=== PATIENT | male | born 1955 | race Caucasian/White ===

== ENCOUNTER 2017-01-09 13:33 | Emergency (ER) | payer BC, OTHER ==
[~2017-01-09] VITALS: Ht 185.4 cm; Wt 96.6 kg
[2017-01-09 13:40] VITALS: TEMP 36.9; Ht 185.4 cm; Wt 96.6 kg
[2017-01-09] MEDS ORDERED: ALBUTEROL HFA 8 GM INHALER INH STA (13:50)
--- NOTE | 2017-01-09 14:40 | DIAGNOSTIC IMAGING REPORT ---
CHEST 2 VIEWS ROUTINE HISTORY: cough/wheezing/chills x 3 wks COMPARISON: Chest 09/02/2014. FINDINGS: The lungs are clear. Cardiac silhouette is normal in size. No pleural effusions. No pneumothorax. IMPRESSION: No acute process. Electronically signed by: Kody Del Rosario M.D. 01/09/2017 2:38 PM Dictated Date/Time: 01/09/2017 2:29 PM
[2017-01-09] MEDS ORDERED: AMOX875T PO (14:54)
--- NOTE | 2017-01-09 14:57 | EMERGENCY ROOM VISIT NOTE ---
History First contact with patient: 13:44 Chief Complaint: COUGH Stated Complaint: COUGH, HEAD CONGESTIONS Nursing Triage Summary: triage note: pt reports for the past 3 weeks he has had head congestion, cough with white sputm, bilat ear "popping." pt reports this is the first time he is seeking medical attention for this illness. pt reports pt has a hx of sarcodosis. History of Present Illness The patient is a 61 year old male who presents to the Emergency Room with complaints of progressively worsening head congestion, productive cough avoid sputum, and bilateral ear pain. The patient reports that he developed a cold 3 weeks ago. He reports that the cough has been intermittent. He has had recent weakness and chills. He has not checked his temperature at home. The patient does have a history of sarcoidosis, but has never had any respiratory problems with his disease. He reports significant pressure in the cheeks and forehead. He denies any history of chronic sinusitis. He currently denies any sore throat , but does have mild postnasal drip. He rates his overall discomfort a 5 out of 10. Review of Systems 10 system review was performed and was negative except for pertinent positives and negatives as indicated in history of present illness Past Medical/Surgical History Medical Problems: (1) Sarcoidosis Surgical Problems: (1) History of appendectomy (2) History of hernia repair Family History Cancer Heart disease Social History Smoking Status: Never Smoker Alcohol Use: occasionally Drug Use: none Marital Status: Housing Status: lives with family Occupation Status: employed Current/Historical Medications Scheduled Amoxicillin & Pot Clavulanate (Augmentin 875-125 mg), 1 TAB PO BID Allergies Coded Allergies: Codeine (Verified Allergy, Severe, ANAPHYLAXIS, 01/09/17) "GETS RED AND NECK SWELLS UP" Physical Exam Vital Signs Date Time Temp Pulse Resp B/P (MAP) Pulse Ox O2 Delivery O2 Flow Rate FiO2 01/09/17 13:40 36.9 88 18 111/82 94 Room Air Physical Exam CONSTITUTIONAL: Healthy and well nourished. Alert and oriented X 3 with positive affect. She has a mild nonproductive cough. HEENT: Normocephalic, atraumatic. Pupils equal, round and reactive. Examination of the ears does show bilateral TM bulging without air-fluid levels or purulent effusion. TM is not erythematous. Nares are clear. The patient has tenderness to percussion of the frontal and maxillary sinuses. OROPHARYNX: Minimal posterior pharyngeal erythema without tonsillar hypertrophy , exudates or postnasal drip. NECK: Full active range of motion without discomfort. No carotid bruits or JVD. LYMPHATICS: No cervical chain adenopathy. RESPIRATORY: Patient has mild end expiratory wheezing in all nguyen. No crackles, rhonchi or stridor. CARDIOVASCULAR: Regular rate and rhythm with no murmurs, rubs or gallops. INTEGUMENTARY: No rash or other significant dermatologic conditions noted. NEUROLOGIC: No focal neurologic deficits noted. Medical Decision & Procedures ER Provider Diagnostic Interpretation: My interpretation of a two-view chest x-ray does not show any consolidations, pneumothorax or cardiomegaly. Radiologist report is as follows: CHEST 2 VIEWS ROUTINE HISTORY: cough/wheezing/chills x 3 wks COMPARISON: Chest 09/02/2014. FINDINGS: The lungs are clear. Cardiac silhouette is normal in size. No pleural effusions. No pneumothorax. IMPRESSION: No acute process. Medications Administered Medications (Trade) Dose Ordered Sig/Lindsey Route Start Time Stop Time Status Last Admin Dose Admin Albuterol (Ventolin Hfa Inhaler) 2 puffs ONE STAT INH 01/09/17 13:50 01/09/17 13:52 DC 01/09/17 13:50 2 PUFFS ED Course Patient history and physical exam were performed. Nurse's notes were reviewed. Vital signs were reviewed and were normal. O2 saturation was 97% on my evaluation. The patient is normotensive and not tachycardic. He is also afebrile. A two-view chest x-ray was normal. The patient was administered 2 puffs of an albuterol metered-dose inhaler with an AeroChamber. This completely resolved the patient's cough, and reported that his lungs "felt better". Re-auscultation did not show any expiratory wheezing. The patient will be prescribed Augmentin 875 mg twice a day 10 days. He was encouraged to continue administering albuterol 2 puffs every 4 hours as needed for cough. Ibuprofen and Tylenol as needed for pain. He may also use an additional OTC medications such as Sudafed, Mucinex and Robitussin as needed for additional relief. He was encouraged to follow-up with his PCP if symptoms are not significantly improving within the next 3-5 days. The patient was happy with plan of care, and voiced understanding of all discharge instructions. Medical Decision Impression Primary Impression: Acute sinusitis Additional Impressions: Acute bronchitis History of sarcoidosis Departure Information Prescriptions Amoxicillin & Pot Clavulanate (Augmentin 875-125 mg) 1 Tab Tab 1 TAB PO BID for 10 Days, #20 TAB Prov: Shan Payne PA 01/09/17 Referrals Melisa Hyman M.D. (PCP) Patient Instructions My [facility] Problem Qualifiers Primary Impression: Acute sinusitis Sinusitis location: maxillary Recurrence: non-recurrent Qualified Codes: J01.00 - Acute maxillary sinusitis, unspecified Additional Impressions: Acute bronchitis Bronchitis organism: unspecified organism Qualified Codes: J20.9 - Acute bronchitis, unspecified
[2017-01-09] MEDS ORDERED: AMOXICIL/CLAVU 875MG HOME PACK PO ONE (15:00)
[2017-01-09 15:16] VITALS: BP 120/71; PULSE 88; O2SAT 96
== END 2017-01-09 15:17 | disposition home or self-care (01) ==
LOC: C.EDB 13:34
DX: J01.90 Acute sinusitis, unspecified (principal); J20.9 Acute bronchitis, unspecified; D86.9 Sarcoidosis, unspecified; Z98.890 Other specified postprocedural states; Z88.5 Allergy status to narcotic agent; Z80.9 Family history of malignant neoplasm, unspecified; Z82.49 Family history of ischemic heart disease and other diseases of the circulatory system

== ENCOUNTER → 2017-05-06 | Outpatient (CLI) | payer OTHER ==
[2017-05-06 13:29] LABS: BASO % 0.7 %; BASO ABS # 0.04 K/uL (0-0.2); COMPLETE YES; EOS % 2.4 %; HEMATOCRIT 41.9 % (42-52); IG% 0.5 %; LYMPH % 20.6 %; LYMPH ABS # 1.21 K/uL (1.2-3.4); MEAN CELL VOLUME 91.3 fL (80-100); MEAN CORPUSCULAR HEMOGLOBIN 30.9 pg (25-34); MEAN CORPUSCULAR HGB CONC 33.9 g/dl (32-36); MEAN PLATELET VOLUME 10.9 fL (7.4-10.4); MONO % 11.8 %; PLATELET COUNT 202 K/uL (130-400); RED BLOOD COUNT 4.59 M/uL (4.7-6.1); WHITE BLOOD COUNT 5.87 K/uL (4.8-10.8)
[2017-05-06 14:26] LABS: ALT/SGPT 28 U/L (12-78); BLOOD UREA NITROGEN 20 mg/dl (7-18); BUN/CREATININE RATIO 23.3 (10-20); CALCIUM 8.7 mg/dl (8.5-10.1); CARBON DIOXIDE 26 mmol/L (21-32); CHLORIDE 105 mmol/L (98-107); CHOLESTEROL 201 mg/dl (0-200); CREATININE 0.84 mg/dl (0.60-1.40); GLUCOSE 99 mg/dl (70-99); POTASSIUM 4.5 mmol/L (3.5-5.1); SODIUM 139 mmol/L (136-145)
[2017-05-06 14:37] LABS: ALB/GLOB RATIO 0.9 (0.9-2); ALKALINE PHOSPHATASE 52 U/L (45-117); AST/SGOT 19 U/L (15-37); CHOLESTEROL/HDL RATIO 2.5; HDL CHOLESTEROL 79 mg/dl; LDL CHOLESTEROL CALCULATED 111 mg/dl; PROSTATE SPECIFIC ANTIGEN 0.897 ng/ml (0.000-4.000); TRIGLYCERIDES 54 mg/dl (0-150); VERY LOW DENSITY LIPOPROT CALC 11 mg/dl
== END | disposition home or self-care (01) ==
LOC: C.LABMFLN 07:48
PROVIDERS: ATTEND Internal Medicine
DX: Z00.00 Encounter for general adult medical examination without abnormal findings (principal); D86.9 Sarcoidosis, unspecified; Z11.59 Encounter for screening for other viral diseases; R68.82 Decreased libido; N52.9 Male erectile dysfunction, unspecified

== ENCOUNTER → 2017-11-09 | Outpatient (CLI) | payer OTHER | END | disposition home or self-care (01) | LOC: C.LABMFLN 07:17 | PROVIDERS: ATTEND Internal Medicine | DX: D86.9 Sarcoidosis, unspecified (principal) ==

== ENCOUNTER → 2017-12-05 | Outpatient (CLI) | payer OTHER ==
--- NOTE | 2017-12-05 14:49 | DIAGNOSTIC IMAGING REPORT ---
CHEST 2 VIEWS ROUTINE HISTORY: 62 years-old Male D86.9 [id number] COMPARISON: Chest radiograph 01/09/2017, chest CT 11/25/2014 TECHNIQUE: PA and lateral views of the chest FINDINGS: Cardiac silhouette is within normal limits. Mild prominence of the right paratracheal tissues likely secondary to underlying paratracheal adenopathy. No pneumothorax, pleural effusion, focal airspace consolidation or overt pulmonary edema. No significant hilar enlargement. Right-sided cervical rib incidentally noted. Bones of the chest appear grossly intact. IMPRESSION: 1. No acute processes of the chest. 2. Mild prominence of the right paratracheal tissues likely correlates with underlying adenopathy. 3. Incidental note is made of a right-sided cervical rib. The above report was generated using voice recognition software. It may contain grammatical, syntax or spelling errors. Electronically signed by: Maurilio Kovacs M.D. 12/05/2017 2:47 PM Dictated Date/Time: 12/05/2017 2:45 PM
== END | disposition home or self-care (01) ==
LOC: C.RAD1850 14:35
PROVIDERS: ATTEND Physician Assistant
DX: D86.9 Sarcoidosis, unspecified (principal); Q76.5 Cervical rib

== ENCOUNTER → 2018-02-09 | Outpatient (CLI) | payer OTHER | END | disposition home or self-care (01) | LOC: C.LABMFLN 07:03 | PROVIDERS: ATTEND Internal Medicine | DX: D86.9 Sarcoidosis, unspecified (principal) ==